=== PATIENT | male | born 1980 | race Caucasian/White ===

== ENCOUNTER 2020-03-21 21:47 | Emergency (ER) | payer OTHER ==
[~2020-03-21] VITALS: Ht 167.6 cm; Wt 73.9 kg
[2020-03-21 22:09] LABS: ABSOLUTE BASOPHILS 0.1 thou/uL (0.0-0.2); ABSOLUTE EOSINOPHILS 0.1 thou/uL (0.0-0.7); ABSOLUTE LYMPHOCYTES 2.2 thou/uL (0.8-5.3); ABSOLUTE MONOCYTES 0.6 thou/uL (0.0-1.2); ABSOLUTE NEUTROPHILS 3.5 thou/uL (1.6-8.1); BASOPHILS 1.1 %; HEMATOCRIT 49.8 % (42.0-52.0); HEMOGLOBIN 17.6 gm/dL (14.0-18.0); MCH 34.9 pg (26.0-34.0); MCHC 35.4 g/dL (28.0-37.0); MCV 98.6 fL (80.0-100.0); MONOCYTES 8.9 %; MPV 7.4 fl. (7.2-11.1); NUCLEATED RBCS 0 /100WBC; PLATELET COUNT* 266 thou/uL (150-400); RBC 5.04 mil/uL (4.50-6.00); RDW-CV 14.2 % (10.5-14.5); WBC 6.6 thou/uL (4.0-11.0)
[2020-03-21 22:18] LABS: CALCIUM 9.1 mg/dL (8.5-10.1); CREATININE 1.2 mg/dL (0.6-1.3); POTASSIUM 3.4 mmol/L (3.5-5.1)
[2020-03-21 22:23] LABS: PROTIME 10.7 Seconds (9.20-11.50)
[2020-03-21 22:29] LABS: ALBUMIN 4.5 g/dL (3.4-5.0); MAGNESIUM 2.2 mg/dL (1.8-2.4); TOTAL BILIRUBIN 2.2 mg/dL (<0.1-1.0); TOTAL PROTEIN 7.5 g/dL (6.4-8.2)
[2020-03-21 23:35] VITALS: BP 130/78
--- NOTE | 2020-03-22 10:07 | EKG ---
[place] [address] ELECTROCARDIOGRAM REPORT Name: YARITZA GONSALVES Room: [facility]#: [id number] Admission: 03/21/20 Attend Phys: Discharge: 03/21/20 Date of : 82 Date of Service: 03/21/202150 Report #: [id number] THIS REPORT FOR: //name// [facility] ED Test Date: 2020-03-21 Test Time: 21:51:45 Pat Name: YARITZA GONSALVES Department: Room: Gender: [employer] Attendant: NIKKI : 1980 Requested By: Jyotsna Mckinney Order Number: [id number] MD: Capo Jansen Measurements Intervals [place] Rate: 77 P: 76 IN: 141 QRS: 78 QRSD: 95 T: 58 QT: 350 QTc: 397 Interpretive Statements Sinus rhythm Probable left atrial enlargement rsr' in V1 artifact noted No previous ECG available for comparison Electronically Signed On 03-22-2020 10:07:38 CDT by Capo Jansen [email or web address] <ELECTRONICALLY SIGNED> By: Capo Jansen MD, [facility] [id number] 50 Capo Jansen MD, [facility] /EPI
== END 2020-03-21 23:35 | disposition home or self-care (01) ==
LOC: M.ERS 21:47
PROVIDERS: Emergency Medicine
DX: R07.89 Other chest pain (principal); F15.90 Other stimulant use, unspecified, uncomplicated; Z88.5 Allergy status to narcotic agent; Z88.8 Allergy status to other drugs, medicaments and biological substances